=== PATIENT | female | born 2000 | race Caucasian/White ===

== ENCOUNTER 2022-01-03 21:43 | Emergency (ER) | payer OTHER, SELFPAY ==
[2022-01-03 21:50] VITALS: BP 137/76; PULSE 88; RESP 17; TEMP 36.9; O2SAT 100; BMI 27.3
--- NOTE | 2022-01-03 22:15 | ED.GENADULT ---
HPI - General Adult General Chief complaint: Upper Respiratory Symptoms Stated complaint: wants a strep test done Time Seen by Provider: 01/03/22 21:48 Source: patient Mode of arrival: Ambulatory History of Present Illness HPI narrative: Otherwise healthy 21-year-old female who is here for evaluation of approximately 24 hours of sore throat. Today she also started to develop a cough. No fevers. She is having some congestion. Is here concerned about strep throat. Review of Systems Constitutional Constitutional: Reports as per HPI and Reports system reviewed and no additional complaints, except as documented ENT Ears, Nose, Mouth, and Throat: Reports system reviewed and no additional complaints, except as documented and Reports as per HPI Respiratory Respiratory: Reports system reviewed and no additional complaints, except as documented Hematologic/Lymphatic On Anticoagulants: No Patient History Medical History Healthy adult Social History Smoking Status: Current every day smoker Smoking Status: Current every day smoker tobacco type: vaping alcohol intake frequency: a few times a month Substance Use Type: does not use Exam Initial Vital Signs Initial Vital Signs: Vital Signs Temperature 98.4 F 01/03/22 21:50 Pulse Rate 88 01/03/22 21:50 Respiratory Rate 17 01/03/22 21:50 Blood Pressure 137/76 01/03/22 21:50 Pulse Oximetry 100 01/03/22 21:50 HENMT Head: normal to inspection and normocephalic Ears: hearing grossly normal bilaterally Nose: external nose normal Mouth: oral mucosae normal and moist mucous membranes Teeth and gingiva: dentition normal Throat: posterior oropharynx abnormal Neck Neck: normal visual inspection Resp Effort & Inspection: normal respiratory effort Auscultation: clear to auscultation bilaterally Cardio Rate: regular rate Rhythm: regular rhythm Skin General: no rashes or lesions noted Neuro General: patient alert, patient awake and moves all extremities Extrem General: normal to inspection and capillary refill normal Course Vital Signs Vital signs: Vital Signs - 8 hr 01/03/22 21:50 Temperature 98.4 F Pulse Rate 88 Respiratory Rate 17 Blood Pressure 137/76 Pulse Oximetry 100 Medical Decision Making Lab Data Labs: Point of Care Testing Rapid Strep A Negative Point of care testing: Point of Care Testing Rapid Strep A Negative MDM Narrative Medical decision making narrative: Rapid strep was negative. Her exam is benign. No indication for antibiotics. We did discuss antihistamines she can try at home to help with her symptoms. She is given return precautions she expressed understanding and agreement. Discharge Plan Departure Patient Disposition: Home Clinical Impression: Sore throat Instructions: Sore Throat Activity Restrictions/Additional Instructions: Your strep test today was negative. You can try throat lozenges and also [id number] antihistamine such as Claritin or Zyrtec to try to help with your congestion. Return to the emergency department for any new or worsening symptoms.
== END 2022-01-03 22:22 | disposition home or self-care (01) ==
PROVIDERS: Emergency Provider Emergency Medicine
DX: J02.9 Acute pharyngitis, unspecified (principal); R05.9 Cough, unspecified; F17.290 Nicotine dependence, other tobacco product, uncomplicated
CPT/HCPCS: 87880; 99281; 99282

== ENCOUNTER 2024-04-01 11:07 | Emergency (ER) | payer OTHER, SELFPAY ==
[2024-04-01 11:21] VITALS: BP 127/89; PULSE 81; RESP 18; TEMP 36.5; O2SAT 99; BMI 29.8
--- NOTE | 2024-04-01 13:58 | ED_ITS ---
HPI - Skin/Abscess/Foreign Bdy General Chief complaint: Skin/Abscess/Foreign Body Stated complaint: Rash on right arm Time Seen by Provider: 04/01/24 13:52 Source: patient Mode of arrival: Ambulatory Limitations: no limitations History of Present Illness HPI narrative: Patient is a 24-year-old female without significant past medical history who had a tattoo on her right arm 2 days ago. They put a 2nd skin on. She has had many tattoos to day she presents with significant itching some erythema. It is mostly in her AC joint. She is tried calamine lotion and Benadryl. The tattoo part actually is okay there is no significant erythema it is healing. He tried some Aquaphor and it made it sting. She says last night it was a lot redder today to little bit better. She denies any fever or chills Related Data Allergies Allergy/AdvReac Type Severity Reaction Status Date / Time No Known Drug Allergies Allergy Verified 04/01/24 11:24 Patient History Medical History Healthy adult Social History Smoking Status: Current every day smoker Smoking Status: Current every day smoker tobacco type: vaping alcohol intake frequency: a few times a month Substance Use Type: does not use Exam Initial Vital Signs Initial Vital Signs: Vital Signs Temperature 97.7 F 04/01/24 11:21 Pulse Rate 81 04/01/24 11:21 Respiratory Rate 18 04/01/24 11:21 Blood Pressure 127/89 04/01/24 11:21 Pulse Oximetry 99 04/01/24 11:21 Oxygen Delivery Method Room Air 04/01/24 11:21 GENERAL: Well-appearing, well-nourished and in no acute distress. CARDIOVASCULAR: peripheral pulses in tact, cap refill <2 sec RESPIRATORY: No respiratory distress, speaks in full sentences without di fficulty EXTREMITIES: Normal range of motion, no clubbing or edema. Neurovascularly intact NEUROLOGICAL: Cranial nerves II through XII grossly intact. Normal gait and speech. SKIN: Right arm many tattoos noted the newest tattoo does not have any significant erythema has some dry skin in scabbed over regions. The AC anterior side does have some blotchy erythematous papule. Not tender to touch no circumferential erythema non streaking Course Vital Signs Vital signs: Vital Signs - 8 hr 04/01/24 11:21 04/01/24 14:09 Temperature 97.7 F 97.9 F Pulse Rate 81 80 Respiratory Rate 18 16 Blood Pressure 127/89 123/76 Pulse Oximetry 99 99 Oxygen Delivery Method Room Air Room Air MDM - Skin/Abscess/Foreign Bdy MDM Narrative Medical decision making narrative: 24-year-old female presents today with rash 2 days after a tattoo. The to itself does not appear infected. This seems to be type of reaction. It does go into her upper arm a little. But mostly stays around the AC area on the anterior side. It is slightly raised erythematous papules. Does not appear like cellulitis she has also been afebrile. I think is more of some sort dermatitis. Discharge Plan Departure Patient Disposition: Home Clinical Impression: Contact dermatitis Instructions: DI for Atopic Dermatitis-Adult Activity Restrictions/Additional Instructions: *You have been diagnosed with contact dermatitis *What to do: Discontinue use of Saniderm, continue to monitor continue to apply Aquaphor *Continue to take medications as directed Benadryl as needed *Follow up with your primary care provider in 2-3 days or call [phone] *Return to ER if you should have increasing redness fever swelling pain [or] any new, worsening or concerning symptoms Referrals: Cynthia Howell [Primary Care Provider] - Stand Alone Forms: Patient Portal/API
[2024-04-01 14:09] VITALS: BP 123/76; PULSE 80; RESP 16; TEMP 36.6; O2SAT 99
== END 2024-04-01 14:10 | disposition home or self-care (01) ==
PROVIDERS: Emergency Provider Emergency Medicine
DX: L25.9 Unspecified contact dermatitis, unspecified cause (principal)
CPT/HCPCS: 99281; 99282